=== PATIENT | female | born 1940 | race African-American/Black ===

== ENCOUNTER 2017-07-29 12:06 | Emergency (ER) | payer MEDICARE ==
--- NOTE | 2017-07-29 12:24 | ER Document Report ---
ED Medical Screen (RME) - General Chief Complaint: Back Pain Stated Complaint: BACK CHEST PAIN Time Seen by Provider: 07/29/17 12:22 Mode of Arrival: Wheelchair Information source: Patient, Relative TRAVEL OUTSIDE OF THE [place] IN LAST 30 DAYS: No - HPI Patient complains to provider of: CP; mid back pain Onset: This morning - pt. states she developed mid back pain this am which radiated to her chest -- took ASA and pain now is iimproved - Related Data Allergies/Adverse Reactions: No Known Drug Allergies Allergy (Verified 08/02/16 15:09) Past Medical History - Past Medical History Cardiac Medical History: Reports: Hx Hypercholesterolemia, Hx Hypertension Denies: Hx Coronary Artery Disease, Hx Heart Attack Pulmonary Medical History: Denies: Hx Asthma, Hx Bronchitis, Hx COPD, Hx Pneumonia Neurological Medical History: Denies: Hx Cerebrovascular Accident, Hx Seizures Endocrine Medical History: Reports: Hx Diabetes Mellitus Type 2 GI Medical History: Reports: Hx Gastritis Musculoskeltal Medical History: Denies Hx Arthritis Past Surgical History: Reports: Hx Hysterectomy, Hx Thyroid Surgery, Hx Tubal Ligation, Other - Carpal tunnel release - Immunizations Hx Diphtheria, Pertussis, Tetanus Vaccination: Yes - unknown Physical Exam - Vital signs Vitals: Temp Pulse Resp BP Pulse Ox 97.7 F 72 16 161/93 H 97 07/29/17 12:18 07/29/17 12:18 07/29/17 12:18 07/29/17 12:18 07/29/17 12:18 Course - Vital Signs Vital signs: Temp Pulse Resp BP Pulse Ox 97.7 F 72 16 161/93 H 97 07/29/17 12:18 07/29/17 12:18 07/29/17 12:18 07/29/17 12:18 07/29/17 12:18
--- NOTE | 2017-07-29 13:14 | RADIOLOGY REPORT (SQ) ---
EXAM DESCRIPTION: CHEST PA/LAT COMPLETED DATE/TIME: 07/29/2017 12:55 pm REASON FOR STUDY: CP COMPARISON: 07/17/2016. EXAM PARAMETERS: NUMBER OF VIEWS: two views TECHNIQUE: Digital Frontal and Lateral radiographic views of the chest acquired. RADIATION DOSE: NA LIMITATIONS: none FINDINGS: LUNGS AND PLEURA: No opacities, masses or pneumothorax. No pleural effusion. MEDIASTINUM AND HILAR STRUCTURES: No masses or contour abnormalities. HEART AND VASCULAR STRUCTURES: Heart normal size. No evidence for failure. BONES: No acute findings. HARDWARE: None in the chest. OTHER: No other significant finding. IMPRESSION: NO SIGNIFICANT RADIOGRAPHIC FINDING IN THE CHEST. TECHNICAL DOCUMENTATION: JOB ID: [id number] [employer]- All Rights Reserved
[2017-07-29 13:32] LABS: ABSOLUTE EOSINOPHILS # (AUTO) 0.1 10^3/uL (0.0-0.6); ABSOLUTE MONOCYTES (AUTO) 0.3 10^3/uL (0.1-1.4); ABSOLUTE NEUT (AUTO) 2.6 10^3/uL (1.7-8.2); BASOPHILS % (AUTO) 0.5 % (0-2); EOSINOPHILS % (AUTO) 2.4 % (0-6); HEMATOCRIT 35.9 % (36.0-47.0); HEMOGLOBIN 12.1 g/dL (12.0-15.5); HGB HCT DIFFERENCE 0.4; LYMPHOCYTES % (AUTO) 25.6 % (13-45); MEAN CORPUSCULAR HEMOGLOBIN 26.8 pg (27.0-33.4); MEAN CORPUSCULAR HGB CONC 33.6 g/dL (32.0-36.0); MEAN CORPUSCULAR VOLUME 80 fl (80-97); MONOCYTES % (AUTO) 7.1 % (3-13); SEGMENTED NEUTROPHILS % (AUTO) 64.4 % (42-78)
--- NOTE | 2017-07-29 13:38 | ER Document Report ---
ED General Pain - General Chief Complaint: Back Pain Stated Complaint: BACK CHEST PAIN Time Seen by Provider: 07/29/17 12:22 Mode of Arrival: Wheelchair Notes: 77 years old female with a history of abdominal aortic aneurysm which was observed for any leak year ago, developed sudden onset of low back pain late this morning while she was bending down to wash herself. Was nauseous and vomited a few times. No diarrhea or constipation. Denies any dysuria frequency urgency. Scale of pain is 5/10 TRAVEL OUTSIDE OF THE [place] IN LAST 30 DAYS: No - Related Data Allergies/Adverse Reactions: No Known Drug Allergies Allergy (Verified 08/02/16 15:09) Past Medical History - General Information source: Patient, Relative - Social History Smoking Status: Former Smoker Chew tobacco use (# tins/day): No Frequency of alcohol use: None Drug Abuse: None Family History: Reviewed & Not Pertinent Patient has suicidal ideation: No Patient has homicidal ideation: No - Past Medical History Cardiac Medical History: Reports: Hx Hypercholesterolemia, Hx Hypertension Denies: Hx Coronary Artery Disease, Hx Heart Attack Pulmonary Medical History: Denies: Hx Asthma, Hx Bronchitis, Hx COPD, Hx Pneumonia Neurological Medical History: Denies: Hx Cerebrovascular Accident, Hx Seizures Endocrine Medical History: Reports: Hx Diabetes Mellitus Type 2 Renal/ Medical History: Denies: Hx Peritoneal Dialysis GI Medical History: Reports: Hx Gastritis Musculoskeltal Medical History: Denies Hx Arthritis Past Surgical History: Reports: Hx Hysterectomy, Hx Thyroid Surgery, Hx Tubal Ligation, Other - Carpal tunnel release - Immunizations Hx Diphtheria, Pertussis, Tetanus Vaccination: Yes - unknown Hx Pneumococcal Vaccination: 08/21/08 Review of Systems - Review of Systems Notes: REVIEW OF SYSTEMS: CONSTITUTIONAL : Denies fever, chills, or sweats. Denies recent illness. EENT: Denies eye, ear, throat, or mouth pain or symptoms. Denies nasal or sinus congestion or discharge. Denies throat, tongue, or mouth swelling or difficulty swallowing. CARDIOVASCULAR: Denies chest pain. Denies palpitations or racing or irregular heart beat. Denies ankle edema. RESPIRATORY: Denies cough, cold, or chest congestion. Denies shortness of breath, difficulty breathing, or wheezing. GASTROINTESTINAL: Denies abdominal pain or distention. Denies nausea, vomiting , or diarrhea. Denies blood in vomitus, stools, or per rectum. Denies black, tarry stools. Denies constipation. GENITOURINARY: Denies difficulty urinating, painful urination, burning, frequency, blood in urine, or discharge. FEMALE GENITOURINARY: Denies vaginal bleeding, heavy or abnormal periods, irregular periods. Denies vaginal discharge or odor. MUSCULOSKELETAL: Denies back or neck pain or stiffness. Denies joint pain or swelling. SKIN: Denies rash, lesions or sores. HEMATOLOGIC : Denies easy bruising or bleeding. LYMPHATIC: Denies swollen, enlarged glands. NEUROLOGICAL: Denies confusion or altered mental status. Denies passing out or loss of consciousness. Denies dizziness or lightheadedness. Denies headache. Denies weakness or paralysis or loss of use of either side. Denies problems with gait or speech. Denies sensory loss, numbness, or tingling. Denies seizures. PSYCHIATRIC: Denies anxiety or stress. Denies depression, suicidal ideation, or homicidal ideation. ALL OTHER SYSTEMS REVIEWED AND NEGATIVE. PHYSICAL EXAMINATION: GENERAL: Well-appearing, well-nourished and in no acute distress. Appears comfortable not seems to be in any acute distress HEAD: Atraumatic, normocephalic. EYES: Pupils equal round and reactive to light, extraocular movements intact, conjunctiva are normal. ENT: Nares patent, oropharynx clear without exudates. Moist mucous membranes. NECK: Normal range of motion, supple without lymphadenopathy LUNGS: Breath sounds clear to auscultation bilaterally and equal. No wheezes rales or rhonchi. HEART: Regular rate and rhythm without murmurs ABDOMEN: Soft, she is tender on the midline of the abdomen close to the umbilicus. No rebound tenderness or guarding, nondistended abdomen. No guarding, no rebound. No masses appreciated. Female : deferred Musculoskeletal: Normal range of motion, no pitting or edema. No cyanosis. NEUROLOGICAL: Cranial nerves grossly intact. Normal speech, normal gait. Normal sensory, motor exams PSYCH: Normal mood, normal affect. SKIN: Warm, Dry, normal turgor, no rashes or lesions noted. Dictation was performed using modu recognition software Physical Exam - Vital signs Vitals: Temp Pulse Resp BP Pulse Ox 97.7 F 72 16 161/93 H 97 07/29/17 12:18 07/29/17 12:18 07/29/17 12:18 07/29/17 12:18 07/29/17 12:18 Course - Re-evaluation Re-evalutation: 07/29/17 17:25 CT report was discussed with patient, CT report reviewed Chest x-ray report reviewed - Vital Signs Vital signs: Temp Pulse Resp BP Pulse Ox 97.7 F 72 16 161/93 H 97 07/29/17 12:18 07/29/17 12:18 07/29/17 12:18 07/29/17 12:18 07/29/17 12:18 - Laboratory Result Diagrams: 07/29/17 13:10 07/29/17 13:10 Laboratory results interpreted by me: 07/29/17 07/29/17 13:10 13:10 Hct 35.9 L MCH 26.8 L RDW 15.0 H Glucose 129 H Creatine Kinase 188 H - Diagnostic Test Radiology results interpreted by me: 07/29/17 17:23 07/29/17 17:24 CT report from radiology reviewed Chest x-ray report from radiologist reviewed Discharge - Discharge Clinical Impression: Lower back pain Qualifiers: Chronicity: chronic Back pain laterality: midline Sciatica presence: without sciatica Qualified Code(s): M54.5 - Low back pain; G89.29 - Other chronic pain; G89.29 - Other chronic pain Abdominal aortic aneurysm Qualifiers: Presence of rupture: without rupture Qualified Code(s): I71.4 - Abdominal aortic aneurysm, without rupture Condition: Good Prescriptions: Hydrocodone/Acetaminophen [[place] 5-325 mg Tablet] 1 tab PO BID #10 tablet
[2017-07-29 13:47] LABS: ALANINE AMINOTRANSFERASE 37 U/L (9-52); ALBUMIN 4.1 g/dL (3.5-5.0); ALKALINE PHOSPHATASE 83 U/L (38-126); ANION GAP 10 (5-19); ASPARTATE AMINO TRANSFERASE 23 U/L (14-36); BILIRUBIN,DIRECT 0.4 mg/dL (0.0-0.4); BILIRUBIN,TOTAL 0.5 mg/dL (0.2-1.3); BLOOD UREA NITROGEN 15 mg/dL (7-20); CALCIUM 9.7 mg/dL (8.4-10.2); CARBON DIOXIDE 30 mmol/L (22-30); CHLORIDE 99 mmol/L (98-107); CREATINE KINASE 188 U/L (30-135); CREATININE RESULT 0.75 mg/dL (0.52-1.25); GLUCOSE 129 mg/dL (75-110); POTASSIUM 4.6 mmol/L (3.6-5.0); SODIUM 139.2 mmol/L (137-145); TOTAL PROTEIN 7.4 g/dL (6.3-8.2)
[2017-07-29 13:57] LABS: CREATINE KINASE MB 1.32 ng/mL (<4.55); TROPONIN I < 0.012 ng/mL
--- NOTE | 2017-07-29 17:14 | RADIOLOGY REPORT (SQ) ---
EXAM DESCRIPTION: CT ABD/PELVIS WITH IV ONLY COMPLETED DATE/TIME: 07/29/2017 4:49 pm REASON FOR STUDY: Abdominal pain COMPARISON: 08/02/2016 TECHNIQUE: CT scan of the abdomen and pelvis performed using helical scanning technique with dynamic intravenous contrast injection. No oral contrast. Images reviewed with lung, soft tissue, and bone windows. Reconstructed coronal and sagittal MPR images reviewed. Delayed images for evaluation of the urinary system also acquired. All images stored on PACS. All CT scanners at this facility use dose modulation, iterative reconstruction, and/or weight based d osing when appropriate to reduce radiation dose to as low as reasonably achievable (ALARA). [facility]: Dose Right [facility]: CareDose [facility]: Dose Right [facility]: Teradose 4D [facility]: Confide CONTRAST TYPE AND DOSE: contrast/concentration: Isovue 370.00 mg/ml; Total Contrast Delivered: 77.0 ml; Total Saline Delivered: 67.0 ml RENAL FUNCTION: GFR > 60. RADIATION DOSE: . LIMITATIONS: None. FINDINGS: LOWER CHEST: Minimal dependent subsegmental atelectasis and/ or scarring. The bases are s table in size and contour. There is been interval decrease in amount of intramural hematoma involvin g the visualized descending thoracic aorta. LIVER: Normal size. No masses. No dilated ducts. SPLEEN: Normal size. No focal lesions. PANCREAS: No masses. No significant calcifications. No adjacent inflammation or peripancreatic fluid collections. Pancreatic duct not dilated. GALLBLADDER: No identified stones by CT criteria. No inflammatory changes to suggest cholecystitis. ADRENAL GLANDS: No significant masses or asymmetry. RIGHT KIDNEY AND URETER: No solid masses. No significant calcifications. No hydronephrosis or hyd roureter. LEFT KIDNEY AND URETER: No solid masses. No significant calcifications. No hydronephrosis or hydr oureter. AORTA AND VESSELS: Stable size and contour of the abdominal aorta a with slight decrease in amount of intramural hematoma surrounding the proximal abdominal aorta. No acute aortic injury identified. RETROPERITONEUM: No retroperitoneal adenopathy, hemorrhage or masses. BOWEL AND PERITONEAL CAVITY: Extensive colonic diverticulosis. No masses or inflammatory changes. No free fluid or peritoneal masses. APPENDIX: Normal. PELVIS: No mass. No free fluid. Stable degree of mild bladder prolapse which is otherwise unremarka ble. ABDOMINAL WALL: No masses. No hernias. BONES: Stable degenerative change without fracture or suspicious osseous lesion. OTHER: No other significant finding. IMPRESSION: NO ACUTE INFLAMMATORY CHANGE INVOLVING THE ABDOMEN OR PELVIS. SLIGHT DECREASE IN AMOUNT OF INTRAMURAL HEMATOMA INVOLVING THE VISUALIZED DESCENDING THORACIC AORTA A ND PROXIMAL ABDOMINAL AORTIC ANEURYSM. NO ACUTE VASCULAR INJURY IDENTIFIED. REMAINING FINDINGS ARE STABLE FROM PRIOR CT ABDOMEN FROM 08/02/2016. TECHNICAL DOCUMENTATION: JOB ID: [id number] Quality ID # [id number]: Final reports with documentation of one or more dose reduction techniques (e.g., Au tomated exposure control, adjustment of the mA and/or kV according to patient size, use of iterative reconstruction technique) 2010 [employer]- All Rights Reserved
[2017-07-29] MEDS ORDERED: HYDROCODONE/ACETAMINOPHEN 5-325 MG TABLET PO ONE (17:29)
[2017-07-29 17:46] VITALS: BP 154/86
--- NOTE | 2017-07-29 23:13 | EKG REPORT ---
SEVERITY:- ABNORMAL ECG - SINUS RHYTHM LEFT ANTERIOR FASCICULAR BLOCK LEFT VENTRICULAR HYPERTROPHY BORDERLINE T ABNORMALITIES, INFERIOR LEADS : Confirmed by: Mark Trotter 29-Jul-2017 23:12:21
== END 2017-07-29 17:44 | disposition home or self-care (01) ==
LOC: ER 12:06
DX: I71.4 Abdominal aortic aneurysm, without rupture (principal); M54.5 Low back pain; G89.29 Other chronic pain; M54.9 Dorsalgia, unspecified; R07.9 Chest pain, unspecified; R11.2 Nausea with vomiting, unspecified; Z87.891 Personal history of nicotine dependence
CPT/HCPCS: 93005; 99284; 36415; 82553; 82550; 85025; 80053; 84484; 71020; 74177; 93010; A9270

== ENCOUNTER 2018-02-20 12:19 | Emergency (ER) | payer MEDICARE ==
--- NOTE | 2018-02-20 13:29 | ER Document Report ---
ED Medical Screen (RME) - General Chief Complaint: Flank Pain Stated Complaint: FLANK/LEG PAIN Time Seen by Provider: 02/20/18 13:17 Mode of Arrival: Ambulatory Information source: Patient Notes: 77-year-old female presents with complaints of right-sided rib pain abdominal pain after a lawnmower tipped over and fell on her yesterday. I have greeted and performed a rapid initial assessment of this patient. A comprehensive ED assessment and evaluation of the patient, analysis of test results and completion of the medical decision making process will be conducted by additional ED providers. PHYSICAL EXAMINATION: GENERAL: Well-appearing, well-nourished and in mild acute distress. HEAD: Atraumatic, normocephalic. EYES: Pupils equal round extraocular movements intact, conjunctiva are normal. ENT: Nares patent NECK: Normal range of motion LUNGS: No respiratory distress Musculoskeletal: Normal range of motion NEUROLOGICAL: Normal speech, normal gait. PSYCH: Normal mood, normal affect. SKIN: Warm, Dry, normal turgor, no rashes or lesions noted. TRAVEL OUTSIDE OF THE [place] IN LAST 30 DAYS: No - Related Data Allergies/Adverse Reactions: No Known Drug Allergies Allergy (Verified 02/20/18 12:21) Past Medical History - Social History Frequency of alcohol use: None Drug Abuse: None - Past Medical History Cardiac Medical History: Reports: Hx Hypercholesterolemia, Hx Hypertension Denies: Hx Coronary Artery Disease, Hx Heart Attack Pulmonary Medical History: Denies: Hx Asthma, Hx Bronchitis, Hx COPD, Hx Pneumonia Neurological Medical History: Denies: Hx Cerebrovascular Accident, Hx Seizures Endocrine Medical History: Reports: Hx Diabetes Mellitus Type 2 Renal/ Medical History: Denies: Hx Peritoneal Dialysis GI Medical History: Reports: Hx Gastritis Musculoskeltal Medical History: Denies Hx Arthritis Past Surgical History: Reports: Hx Abdominal Surgery - abd aorta ruture, Hx Hysterectomy, Hx Thyroid Surgery, Hx Tubal Ligation, Other - Carpal tunnel release - Immunizations Hx Diphtheria, Pertussis, Tetanus Vaccination: Yes - unknown Physical Exam - Vital signs Vitals: Temp Pulse Resp BP Pulse Ox 99.0 F 80 16 107/68 96 02/20/18 12:34 02/20/18 12:34 02/20/18 12:34 02/20/18 12:34 02/20/18 12:34 Course - Vital Signs Vital signs: Temp Pulse Resp BP Pulse Ox 99.0 F 80 16 107/68 96 02/20/18 12:34 02/20/18 12:34 02/20/18 12:34 02/20/18 12:34 02/20/18 12:34 Doctor's Discharge - Discharge Referrals: GARRET THOMAS MD [Primary Care Provider] - Follow up as needed
[2018-02-20] MEDS ORDERED: ACETAMINOPHEN WITH CODEINE #3 TABLET PO ONE (13:35)
[2018-02-20 14:36] LABS: ABSOLUTE EOSINOPHILS # (AUTO) 0.1 10^3/uL (0.0-0.6); ABSOLUTE LYMPHOCYTES (AUTO) 1.6 10^3/uL (0.5-4.7); ABSOLUTE MONOCYTES (AUTO) 0.5 10^3/uL (0.1-1.4); ABSOLUTE NEUT (AUTO) 2.5 10^3/uL (1.7-8.2); BASOPHILS % (AUTO) 0.7 % (0-2); EOSINOPHILS % (AUTO) 2.1 % (0-6); HEMATOCRIT 36.6 % (36.0-47.0); HEMOGLOBIN 12.3 g/dL (12.0-15.5); LYMPHOCYTES % (AUTO) 33.2 % (13-45); MEAN CORPUSCULAR HEMOGLOBIN 26.7 pg (27.0-33.4); MEAN CORPUSCULAR HGB CONC 33.5 g/dL (32.0-36.0); MEAN CORPUSCULAR VOLUME 80 fl (80-97); MONOCYTES % (AUTO) 10.3 % (3-13); PLATELET COUNT 196 10^3/uL (150-450); RED BLOOD COUNT 4.59 10^6/uL (3.72-5.28); RED CELL DISTRIBUTION WIDTH 16.2 % (11.5-14.0); SEGMENTED NEUTROPHILS % (AUTO) 53.7 % (42-78); TOTAL CELLS COUNTED % (AUTO) 100 %; WHITE BLOOD COUNT 4.7 10^3/uL (4.0-10.5)
[2018-02-20 15:08] LABS: ALANINE AMINOTRANSFERASE 25 U/L (9-52); ALBUMIN 4.2 g/dL (3.5-5.0); ALKALINE PHOSPHATASE 87 U/L (38-126); ANION GAP 9 (5-19); ASPARTATE AMINO TRANSFERASE 38 U/L (14-36); BILIRUBIN,DIRECT 0.3 mg/dL (0.0-0.4); BILIRUBIN,TOTAL 0.5 mg/dL (0.2-1.3); BLOOD UREA NITROGEN 20 mg/dL (7-20); CARBON DIOXIDE 30 mmol/L (22-30); CHLORIDE 101 mmol/L (98-107); GLUCOSE 93 mg/dL (75-110); POTASSIUM 4.3 mmol/L (3.6-5.0); SODIUM 139.6 mmol/L (137-145); TOTAL PROTEIN 7.8 g/dL (6.3-8.2)
--- NOTE | 2018-02-20 15:57 | ER Document Report ---
ED General - General Mode of Arrival: Ambulatory TRAVEL OUTSIDE OF THE [place] IN LAST 30 DAYS: No <SOCORRO BARROS - Last Filed: 02/20/18 17:49> <JUAN COLLINS - Last Filed: 02/20/18 18:51> - General Chief Complaint: Flank Pain Stated Complaint: FLANK/LEG PAIN Time Seen by Provider: 02/20/18 13:17 Notes: Patient is a 77-year-old female presenting to the emergency department complaining of right-sided rib pain and abdominal pain onset yesterday. Patient states that a cork insulator helper fell on top of her around 1900 yesterday evening. She also complains of some weakness in her right leg due to pain and right hip pain. She mentions taking a aspirin yesterday. Patient denies any head trauma, vision changes or taking blood thinners. (SOCORRO BARROS) - Related Data Allergies/Adverse Reactions: No Known Drug Allergies Allergy (Verified 02/20/18 12:21) Past Medical History - General Information source: Patient - Social History Smoking Status: Never Smoker Frequency of alcohol use: None Drug Abuse: None Family History: Reviewed & Not Pertinent Patient has suicidal ideation: No Patient has homicidal ideation: No - Past Medical History Cardiac Medical History: Reports: Hx Hypercholesterolemia, Hx Hypertension Endocrine Medical History: Reports: Hx Diabetes Mellitus Type 2 GI Medical History: Reports: Hx Gastritis Past Surgical History: Reports: Hx Abdominal Surgery - abd aorta ruture, Hx Hysterectomy, Hx Thyroid Surgery, Hx Tubal Ligation, Other - Carpal tunnel release - Immunizations Hx Diphtheria, Pertussis, Tetanus Vaccination: Yes - unknown Hx Pneumococcal Vaccination: 08/21/08 <SOCORRO BARROS - Last Filed: 02/20/18 17:49> Review of Systems - Review of Systems Constitutional: No symptoms reported EENT: No symptoms reported Cardiovascular: No symptoms reported Respiratory: No symptoms reported Gastrointestinal: See HPI, Abdominal pain Genitourinary: No symptoms reported Female Genitourinary: No symptoms reported Musculoskeletal: See HPI <SOCORRO BARROS - Last Filed: 02/20/18 17:49> Physical Exam <SOCORRO BARROS - Last Filed: 02/20/18 17:49> <JUAN COLLINS - Last Filed: 02/20/18 18:51> - Vital signs Vitals: Temp Pulse Resp BP Pulse Ox 99.0 F 80 16 107/68 96 02/20/18 12:34 02/20/18 12:34 02/20/18 12:34 02/20/18 12:34 02/20/18 12:34 - Notes Notes: GENERAL: Alert, interacts well. No acute distress. HEAD: Normocephalic, atraumatic. EYES: Pupils equal, round, and reactive to light. Extraocular movements intact. ENT: Oral mucosa moist, tongue midline. NECK: Full range of motion. No posterior cervical muscle tenderness to palpation. Supple. Trachea midline. LUNGS: Clear to auscultation bilaterally, no wheezes, rales, or rhonchi. Right floating rib tenderness to palpation, no crepitance. No respiratory distress. HEART: Regular rate and rhythm. No murmurs, gallops, or rubs. ABDOMEN: Soft, right upper quadrant tenderness to palpation. No bruising. Non- distended. Bowel sounds present in all 4 quadrants. EXTREMITIES: Moves all 4 extremities spontaneously. Right quadriceps muscles tenderness to palpation. No pain with active or passive ROM of the BLE or BUE. No edema, radial and dorsalis pedis pulses 2/4 bilaterally. No cyanosis. NEUROLOGICAL: Alert and oriented x3. Normal speech. PSYCH: Normal affect, normal mood. SKIN: Warm, dry, normal turgor. No rashes or lesions noted. BACK: No cervical, thoracic or lumbar tenderness to palpation. 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 Blandon inviting approximately [address] Blandon is a cardiothoracic vascular surgeon. Images were pushed dividing and awaiting consult from his group for management. 02/20/18 18:[address] Mackay in [place]. He reviewed CT performed today compared to CT performed several months ago no change in patient's dissection or a. Safe for discharge their offices will call her on for follow-up. (JUAN COLLINS) - Vital Signs Vital signs: Temp Pulse Resp BP Pulse Ox 99.0 F 80 16 107/68 96 02/20/18 12:34 02/20/18 12:34 02/20/18 12:34 02/20/18 12:34 02/20/18 12:34 - Laboratory Laboratory results interpreted by me: 02/20/18 02/20/18 14:11 14:11 MCH 26.7 L RDW 16.2 H Est GFR (Non-Af Amer) 55 L AST 38 H Critical Care Note - Critical Care Note Total time excluding time spent on procedures (mins): 45 <SOCORRO BARROS - Last Filed: 02/20/18 17:49> Discharge <SOCORRO BARROS - Last Filed: 02/20/18 17:49> <JUAN COLLINS - Last Filed: 02/20/18 18:51> - Discharge Clinical Impression: Contusion of rib on right side Qualifiers: Encounter type: initial encounter Qualified Code(s): S20.211A - Contusion of right front wall of thorax, initial encounter Condition: Good Instructions: Rib Contusion ([facility]) Additional Instructions: You will be called on this week for a follow-up appointment with Dr. Blandon. Spoke to Dr. Mackay, your aneurysm and dissection are stable from previous imaging performed earlier this year. Take Tylenol as needed directed on bottle for your rib pain. Referrals: GARRET THOMAS MD [Primary Care Provider] - Follow up as needed Scribe Documentation - Scribe Written by Scribe:: Gayla Treviño, 02/20/2018 15:57 acting as scribe for :: Ld <SOCORRO BARROS - Last Filed: 02/20/18 17:49>
--- NOTE | 2018-02-20 16:36 | RADIOLOGY REPORT (SQ) ---
EXAM DESCRIPTION: CT ABD/PELVIS WITH IV ONLY COMPLETED DATE/TIME: 02/20/2018 4:09 pm REASON FOR STUDY: trauma COMPARISON: 07/29/2017 TECHNIQUE: CT scan of the abdomen and pelvis performed using helical scanning technique with dynamic intravenous contrast injection. No oral contrast. Images reviewed with lung, soft tissue, and bone windows. Reconstructed coronal and sagittal MPR images reviewed. Delayed images for evaluation of the urinary system also acquired. All images stored on PACS. All CT scanners at this facility use dose modulation, iterative reconstruction, and/or weight based d osing when appropriate to reduce radiation dose to as low as reasonably achievable (ALARA). [facility]: Dose Right [facility]: CareDose [facility]: Dose Right [facility]: Teradose 4D [facility]: vitalclip CONTRAST TYPE AND DOSE: contrast/concentration: Isovue 370.00 mg/ml; Total Contrast Delivered: 75.0 ml; Total Saline Delivered: 67.0 ml RENAL FUNCTION: BUN 20 creatinine 1 RADIATION DOSE: CT Rad equipment meets quality standard of care and radiation dose reduction techniq ues were employed. CTDIvol: 5.9 - 7.7 mGy. DLP: 889 mGy-cm.. LIMITATIONS: None. FINDINGS: LOWER CHEST: See separate report of the CT of the chest. LIVER: Normal size. No masses. No dilated ducts. SPLEEN: Normal size. No focal lesions. PANCREAS: No masses. No significant calcifications. No adjacent inflammation or peripancreatic fluid collections. Pancreatic duct not dilated. GALLBLADDER: No identified stones by CT criteria. No inflammatory changes to suggest cholecystitis. ADRENAL GLANDS: No significant masses or asymmetry. RIGHT KIDNEY AND URETER: No solid masses. No significant calcifications. No hydronephrosis or hyd roureter. LEFT KIDNEY AND URETER: No solid masses. No significant calcifications. No hydronephrosis or hydr oureter. AORTA AND VESSELS: No aneurysm. No dissection. Atherosclerosis. RETROPERITONEUM: No retroperitoneal adenopathy, hemorrhage or masses. BOWEL AND PERITONEAL CAVITY: Extensive colonic diverticulosis with no acute inflammation. No bowel m asses. APPENDIX: Not identified. PELVIS: Uterus is absent. Urinary bladder is normal. ABDOMINAL WALL: No masses. No hernias. BONES: No significant or acute findings. OTHER: No other significant finding. IMPRESSION: Diverticulosis coli with no acute diverticulitis. TECHNICAL DOCUMENTATION: JOB ID: [id number] Quality ID # [id number]: Final reports with documentation of one or more dose reduction techniques (e.g., Au tomated exposure control, adjustment of the mA and/or kV according to patient size, use of iterative reconstruction technique) 2010 [id number]- All Rights Reserved Reading location - IP/workstation name: [email or web address]
--- NOTE | 2018-02-20 17:35 | RADIOLOGY REPORT (SQ) ---
EXAM DESCRIPTION: CT CHEST WITH COMPLETED DATE/TIME: 02/20/2018 4:09 pm REASON FOR STUDY: trauma COMPARISON: 08/02/2016 TECHNIQUE: CT scan of the chest performed using helical scanning technique with dynamic intravenous contrast injection. Images reviewed with lung, soft tissue and bone windows. Reconstructed coronal and sagittal MPR images reviewed. All images stored on PACS. All CT scanners at this facility use dose modulation, iterative reconstruction, and/or weight based d osing when appropriate to reduce radiation dose to as low as reasonably achievable (ALARA). [facility]: Dose Right [facility]: CareDose [facility]: Dose Right [facility]: Teradose 4D [facility]: SoundCure CONTRAST TYPE AND DOSE: 75 mL Isovue 370- low osmolar. RENAL FUNCTION: BUN 20 creatinine 1 RADIATION DOSE: . LIMITATIONS: None. FINDINGS: LUNGS AND PLEURA: No opacities, nodules, masses. No pneumothorax. No effusions. HILAR AND MEDIASTINAL STRUCTURES: No identified masses or abnormal nodes. HEART AND VASCULAR STRUCTURES: Mild aneurysmal dilatation of the ascending aorta measures 4 cm. Ther e is limited dissection in the aortic arch. This is a distal to the origin the left subclavian arter y. This does not propagate into the subclavian this does not extend down the descending aorta. HARDWARE: None in the chest. UPPER ABDOMEN: See separate report of the CT of the abdomen. THYROID AND OTHER SOFT TISSUES: Right lobe of the thyroid is larger than left. BONES: No significant finding. OTHER: No other significant finding. IMPRESSION: 1. Limited dissection of the aortic arch as described. 2. Mild aneurysmal dilatation of the ascending aorta at 4 cm. 3. The right lobe of the thyroid is larger than the left. COMMENT: Pertinent findings on the imaging study reported as a CRITICAL RESULT to VAISHNAVI MENDEZ DO at17:29 on 02/20/2018. TECHNICAL DOCUMENTATION: JOB ID: [id number] Quality ID # [id number]: Final reports with documentation of one or more dose reduction techniques (e.g., Au tomated exposure control, adjustment of the mA and/or kV according to patient size, use of iterative reconstruction technique) 2010 [employer]- All Rights Reserved Reading location - IP/workstation name: [email or web address]
[2018-02-20 18:58] VITALS: BP 144/85
== END 2018-02-20 19:04 | disposition home or self-care (01) ==
LOC: ER 12:19
DX: S20.211A Contusion of right front wall of thorax, initial encounter (principal); R07.89 Other chest pain; M25.551 Pain in right hip; W20.8XXA Other cause of strike by thrown, projected or falling object, initial encounter; E78.00 Pure hypercholesterolemia, unspecified; I10 Essential (primary) hypertension; E11.9 Type 2 diabetes mellitus without complications; Z90.710 Acquired absence of both cervix and uterus
CPT/HCPCS: 99285; 36415; 85025; 80053; 71260; 74177; A9270

== ENCOUNTER 2019-10-10 09:30 | Day surgery (SDC) | payer MEDICARE ==
[~2019-10-10 09:30] MED LIST: BUPIVACAINE HCL 0.75% INJ/PF (7.5 MG/1 ML) 10 ML SDV OD PRN; KETOROLAC TROMETHAMINE 0.45% 4 DROP/0.4 ML DROPERETTE OD PRN; LIDOCAINE 1% INJ-PF (10 MG/ML) 30 ML SDV ONE; LIDOCAINE 4% INJ/PF (40 MG/ML) 5 ML AMPUL OD PRN
[2019-10-10] MEDS: CYCLOPENTOLATE 0.2%/PHENYLEPHRINE 1% OPH SOLN 2 ML OD PRN ×3 (11:10→11:30)
[2019-10-10] MEDS: BESIFLOXACIN HCL 0.6% OPH SUSP 5 ML BOTTLE OD PRN ×4 (11:10→12:23)
[2019-10-10] MEDS: TROPICAMIDE 1% OPH SOLN 15 ML OD PRN ×3 (11:10→11:30)
[2019-10-10] MEDS: TETRACAINE HCL 0.5% OPH SOLN 4 ML OD PRN ×3 (11:11→11:52)
[2019-10-10] MEDS ORDERED: MIDAZOLAM 2 MG/2 ML INJ ONE (11:32)
[2019-10-10] MEDS: LIDOCAINE 1%/PHENYLEPHRINE 1.5% 1 ML VIAL ONE ×2 (12:04→12:05)
[2019-10-10] MEDS: CHONDR SU A NA/HYALUR INTRAOC KIT (SURGICARE) ONE ×2 (12:04→12:05)
[2019-10-10] MEDS: EPINEPHRINE INJ/PF 1 MG/1 ML AMPULE ONE ×2 (12:04→12:05)
[2019-10-10] MEDS: DORZOLAMIDE HCL 2%/TIMOLOL MALEAT 0.5% OPH SOLN 10 ML OD PRN ×2 (12:23)
--- NOTE | 2019-10-10 17:27 | Operative Report ---
Operative Report-[facility] Operative Report: DATE OF SURGERY: 10/10/2019 PREOPERATIVE DIAGNOSIS: 1. CATARACT, RIGHT EYE 2. PUPIL MIOSIS, RIGHT EYE POSTOPERATIVE DIAGNOSIS: 1. CATARACT, RIGHT EYE 2. PUPIL MIOSIS, RIGHT EYE PROCEDURE PERFORMED: COMPLEX CATARACT EXTRACTION WITH INTRAOCULAR LENS, RIGHT EYE Intraocular Lens Model: ZCBOO 27.0 Total Phaco Time: 8.09 CDE SURGEON: COLBY PÉREZ MD ANESTHESIA: Topical with MAC plus intraocular phenylephrine and lidocaine INDICATIONS FOR SURGERY: Difficulty reading small print Indications for complex: Poor pupil dilation requiring the use of a malyugin ring PROCEDURE: The patient was brought to the operating room placed on operating table. Topical anesthesia was administered. This consisted of instrument wipe pledgets soaked in a solution of 4% Xylocaine mixed with 0.75% Marcaine in a 1:2 ratio. A 2 x 1 cm pledget was placed in the superior fornix. A 1 x 1 cm pledget was placed in the inferior fornix. The eye was patched for 5 minutes. The patch and pledgets were removed. The eye was sterilely prepped and draped in the usual manner. A lid speculum was placed in the eye. A 4-0 black silk suture was placed around the superior and inferior rectus muscle to use as traction. A conjunctival peritomy was made at the 10 o'clock position. Hemostasis was obtained with bipolar cautery. A posterior limbal groove was created using a crescent knife and dissected anteriorly towards the cornea. Sharp point blade was used to create a paracentesis site at the 2 o'clock position. A 2.4 mm k eratome was used into the anterior chamber through the groove. Then 0.5 mL of 1% non-preserved lidocaine was injected into the anterior chamber. Viscoelastic was injected into the anterior chamber. Pupil dilation was approximately 4.5 mm. A Malyugin Ring was placed stabilizing the iris. An anterior capsulotomy was performed using Utrata forceps in a capsulorrhexis fashion. Hydrodissection and hydrodelineation was performed. Phacoemulsification was performed in the divide and conquer technique. Following this, that I/A unit was used to remove residual cortex. Viscoelastic was injected into the capsular bag. Intraocular lens were placed in the capsular bag. The Malyugin ring haptics were removed and the ring was removed from the eye. The I/A unit was used to remove residual viscoelastic. The wound was seen to be watertight under high and low pressure and no sutures were placed. The 4-0 black silk sutures and lid speculum were removed. The eye was shielded after Besivance and Cosopt drops were placed. The patient tolerated the procedure well and was sent to recovery room in good condition.
== END 2019-10-10 13:19 | disposition home or self-care (01) ==
LOC: SC 09:30
PROVIDERS: ATTEND Ophthalmology
DX: H25.813 Combined forms of age-related cataract, bilateral (principal); H57.03 Miosis; E11.9 Type 2 diabetes mellitus without complications; H04.123 Dry eye syndrome of bilateral lacrimal glands; H43.813 Vitreous degeneration, bilateral; H52.4 Presbyopia; I10 Essential (primary) hypertension; E78.00 Pure hypercholesterolemia, unspecified; E03.9 Hypothyroidism, unspecified; Z87.891 Personal history of nicotine dependence; Z79.84 Long term (current) use of oral hypoglycemic drugs; I49.9 Cardiac arrhythmia, unspecified; Z79.82 Long term (current) use of aspirin
CPT/HCPCS: 66982; 82962; 00142; V2632; J2250; J3490 ×4; A9270; J0171; J2370; 142

== ENCOUNTER 2019-12-14 13:04 | Observation (INO) | payer MEDICARE ==
--- NOTE | 2019-12-14 13:21 | ER Document Report ---
ED Medical Screen (RME) - General Chief Complaint: Rectal Bleeding Stated Complaint: BACK,SIDE PAIN Time Seen by Provider: 12/14/19 13:14 Primary Care Provider: GARRET THOMAS MD [Primary Care Provider] - Follow up as needed Mode of Arrival: Ambulatory Information source: Patient Notes: Patient presents complaining of blood in her stool for the past 3 days. Patient states she does have occasional dizziness. Patient complains of left arm left upper quadrant and pain between the shoulder blades to the upper back area. Patient does report nausea without vomiting. Patient denies any fever. Patient has a history of hypertension, diabetes as well as diverticulitis. I have greeted and performed a rapid initial assessment of this patient. A comprehensive ED assessment and evaluation of the patient, analysis of test results and completion of the medical decision making process will be conducted by additional ED providers. TRAVEL OUTSIDE OF THE [place] IN LAST 30 DAYS: No - Related Data Allergies/Adverse Reactions: No Known Drug Allergies Allergy (Verified 10/04/19 10:21) Past Medical History - Social History Frequency of alcohol use: Occasional Family history: Reviewed & Not Pertinent - Past Medical History Cardiac Medical History: Reports: Hx Hypercholesterolemia, Hx Hypertension Denies: Hx Coronary Artery Disease, Hx Heart Attack Pulmonary Medical History: Denies: Hx Asthma, Hx Bronchitis, Hx COPD, Hx Pneumonia Neurological Medical History: Denies: Hx Cerebrovascular Accident, Hx Seizures Endocrine Medical History: Reports: Hx Diabetes Mellitus Type 2 Renal/ Medical History: Denies: Hx Peritoneal Dialysis GI Medical History: Reports: Hx Gastritis, Hx Gastroesophageal Reflux Disease. Denies: Hx Hepatitis, Hx Hiatal Hernia, Hx Ulcer Musculoskeltal Medical History: Denies Hx Arthritis Infectious Medical History: Denies: Hx Hepatitis Past Surgical History: Reports: Hx Abdominal Surgery - abd aorta ruture, Hx Hysterectomy, Hx Thyroid Surgery, Hx Tubal Ligation, Other - Carpal tunnel release. Denies: Hx Mastectomy, Hx Open Heart Surgery, Hx Pacemaker - Immunizations Hx Diphtheria, Pertussis, Tetanus Vaccination: Yes - unknown Physical Exam - Vital signs Vitals: Temp Pulse Resp BP Pulse Ox 98.5 F 84 17 114/71 100 12/14/19 13:11 12/14/19 13:11 12/14/19 13:11 12/14/19 13:11 12/14/19 13:11 - General General appearance: Appears well, Alert Notes: Left upper quadrant tenderness Course - Vital Signs Vital signs: Temp Pulse Resp BP Pulse Ox 98.5 F 84 17 114/71 100 12/14/19 13:13 12/14/19 13:11 12/14/19 13:11 12/14/19 13:11 12/14/19 13:11 Doctor's Discharge - Discharge Referrals: GARRET THOMAS MD [Primary Care Provider] - Follow up as needed
[2019-12-14 13:55] LABS: ABSOLUTE EOSINOPHILS # (AUTO) 0.2 10^3/uL (0.0-0.6); ABSOLUTE LYMPHOCYTES (AUTO) 1.6 10^3/uL (0.5-4.7); ABSOLUTE MONOCYTES (AUTO) 0.3 10^3/uL (0.1-1.4); ABSOLUTE NEUT (AUTO) 2.4 10^3/uL (1.7-8.2); BASOPHILS % (AUTO) 0.6 % (0-2); EOSINOPHILS % (AUTO) 3.9 % (0-6); HEMATOCRIT 20.9 % (36.0-47.0); MEAN CORPUSCULAR HEMOGLOBIN 27.8 pg (27.0-33.4); MEAN CORPUSCULAR HGB CONC 34.3 g/dL (32.0-36.0); MEAN CORPUSCULAR VOLUME 81 fl (80-97); MONOCYTES % (AUTO) 7.6 % (3-13); PLATELET COUNT 166 10^3/uL (150-450); RED BLOOD COUNT 2.58 10^6/uL (3.72-5.28); RED CELL DISTRIBUTION WIDTH 16.1 % (11.5-14.0); SEGMENTED NEUTROPHILS % (AUTO) 52.9 % (42-78); TOTAL CELLS COUNTED % (AUTO) 100 %; WHITE BLOOD COUNT 4.5 10^3/uL (4.0-10.5)
[2019-12-14 13:57] LABS: HEMOGLOBIN 7.2 g/dL (12.0-15.5)
[2019-12-14 13:58] LABS: INTERNATIONAL RATION (INR) 0.99
[2019-12-14 13:59] LABS: PARTIAL THROMBOPLASTIN TIME 27.4 SEC (23.5-35.8)
[2019-12-14] MEDS ORDERED: NORMAL SALINE 250 ML IV PRN (14:05)
[2019-12-14 14:12] LABS: ALBUMIN 3.6 g/dL (3.5-5.0); ALKALINE PHOSPHATASE 66 U/L (38-126); ANION GAP 5 (5-19); ASPARTATE AMINO TRANSFERASE 24 U/L (14-36); BILIRUBIN,TOTAL 0.2 mg/dL (0.2-1.3); BLOOD UREA NITROGEN 22 mg/dL (7-20); CALCIUM 8.7 mg/dL (8.4-10.2); CARBON DIOXIDE 26 mmol/L (22-30); CHLORIDE 106 mmol/L (98-107); GLUCOSE 109 mg/dL (75-110); POTASSIUM 4.6 mmol/L (3.6-5.0); TOTAL PROTEIN 6.4 g/dL (6.3-8.2)
[2019-12-14] MEDS ORDERED: ACETAMINOPHEN 325 MG TABLET PO PRN (14:43)
[2019-12-14 14:46] LABS: IRON(TIBC) 39.8 ug/dL (37-170)
[2019-12-14 14:47] LABS: ABSOLUTE RETICS # 0.082 10^6/uL (0.028-0.122); RETICULOCYTE COUNT (AUTO) 3.21 % (0.66-2.85)
[2019-12-14] MEDS ORDERED: ONDANSETRON HCL INJ/PF 4 MG/2 ML SDV IV PRN (14:48)
[2019-12-14] MEDS ORDERED: MAG HYDROX/AL HYDROX/SIMETH SUSP 30 ML UDCUP PO PRN (14:48)
[2019-12-14] MEDS ORDERED: DEXTROSE 40% GEL 15 GM TUBE PO PRN ×2 (14:49)
[2019-12-14] MEDS ORDERED: GLUCAGON,HUMAN RECOMB 1 MG INJ IM PRN (14:49)
[2019-12-14] MEDS ORDERED: DEXTROSE 50%-WATER 25 GM/50 ML DISP.SYRIN IV PRN ×2 (14:49)
[2019-12-14 15:05] LABS: APPEARANCE,URINE CLEAR; BILIRUBIN,URINE NEGATIVE (NEGATIVE); COLOR,URINE YELLOW; GLUCOSE, URINE NEGATIVE (NEGATIVE); KETONES,URINE NEGATIVE (NEGATIVE); LEUKOCYTE ESTERASE,URINE NEGATIVE (NEGATIVE); NITRITE,URINE NEGATIVE (NEGATIVE); PROTEIN,URINE NEGATIVE (NEGATIVE); URINE SPECIFIC GRAVITY 1.009; UROBILINOGEN,URINE NEGATIVE mg/dL (<2.0)
--- NOTE | 2019-12-14 15:25 | PDOC H&P ---
History of Present Illness Admission Date/PCP: GARRET THOMAS Patient complains of: Dizziness, palpitations, rectal bleed History of Present Illness: JUAN CARLOS MONTANA is a 79 year old female with a history of extensive diverticulosis, type 2 diabetes mellitus, and hypertension, presented to the hospital with complaints of palpitations and rectal bleeding. Rectal bleeding started on and initially started as hematochezia with more red blood in the bowl than stool transitioned over the next few days to dark stool. Patient states that she has been having about 1 bowel movement today. Associated with dizziness this morning and palpitations. States that she feels her dizziness is due to her blood pressure medication which she takes at nighttime and sometimes causes dizziness/lightheadedness in the morning. Did note some pain in her left arm which was intermittent. Subsequently came to the ER for evaluation. In the ER patient was noted to be anemic with hemoglobin of 7.2. Patient states her last colonoscopy and upper endoscopy was in 2019. Denies having any recurrence of GI bleed for the past 1 year. Denies frequent constipation. Denies chest pain. Past Medical History Cardiac Medical History: Reports: Hyperlipidema, Hypertension Denies: Coronary Artery Disease, Myocardial Infarction Pulmonary Medical History: Denies: Asthma, Bronchitis, Chronic Obstructive Pulmonary Disease (COPD), Pneumonia Neurological Medical History: Denies: Seizures Endocrine Medical History: Reports: Diabetes Mellitus Type 2 GI Medical History: Reports: Gastroesophageal Reflux Disease Denies: Hepatitis, Hiatal Hernia Musculoskeltal Medical History: Denies: Arthritis Hematology: Reports: Anemia Denies: Sickle Cell Disease Past Surgical History Past Surgical History: Reports: Hysterectomy, Tubal Ligation, Other - Carpal tunnel release Denies: Amputation, Mastectomy, Pacemaker Social History Smoking Status: Former Smoker Frequency of Alcohol Use: None Hx Recreational Drug Use: No Drugs: None Hx Prescription Drug Abuse: No - Advance Directive Resuscitation Status: Do Not Resuscitate - DNR/DNI Family History Family History: DM, Hypertension Parental Family History Reviewed: Yes Children Family History Reviewed: NA Sibling(s) Family History Reviewed.: NA Medication/Allergy Home Medications: Aspirin [Aspirin 81 mg Chewable Tablet] 81 mg PO DAILY 03/21/19 Carvedilol [Coreg 25 mg Tablet] 25 mg PO BID 03/21/19 Lisinopril [Prinivil 40 mg Tablet] 40 mg PO DAILY 03/21/19 Metformin HCl [Glucophage 500 mg Tablet] 500 mg PO DAILY 03/21/19 Nifedipine [Procardia XL 30 mg Tablet] 30 mg PO DAILY 03/21/19 Besifloxacin HCl [Besivance 0.6% Oph Susp 5 ml] 1 drop OP TID 10/09/19 Bromfenac Sodium [Prolensa] 1.6 ml OP .ASDIR 10/09/19 Difluprednate [Durezol] 5 ml OP .ADIR 10/09/19 Allergies/Adverse Reactions: No Known Drug Allergies Allergy (Verified 10/04/19 10:21) Review of Systems Constitutional: ABSENT: fatigue, fever(s) Eyes: ABSENT: visual disturbances Nose, Mouth, and Throat: ABSENT: headache(s) Cardiovascular: ABSENT: chest pain Respiratory: ABSENT: dyspnea Gastrointestinal: PRESENT: abdominal pain. ABSENT: coffee ground emesis, nausea, vomiting Integumentary: ABSENT: diaphoresis Neurological: PRESENT: dizziness. ABSENT: convulsions Hematologic/Lymphatic: ABSENT: easy bleeding Physical Exam Vital Signs: Temp Pulse Resp BP Pulse Ox 98.5 F 84 17 114/71 100 12/14/19 13:13 12/14/19 13:11 12/14/19 13:11 12/14/19 13:11 12/14/19 13:11 Intake & Output 12/13/19 12/14/19 12/15/19 06:59 06:59 06:59 Weight 71.7 kg General appearance: PRESENT: no acute distress, cooperative Head exam: PRESENT: normocephalic Mouth exam: PRESENT: neck supple Neck exam: ABSENT: JVD Respiratory exam: PRESENT: clear to auscultation alisa, unlabored. ABSENT: tachypnea, wheezes Cardiovascular exam: PRESENT: +S1, +S2 GI/Abdominal exam: PRESENT: soft. ABSENT: distended, rebound, rigid, tenderness Extremities exam: ABSENT: calf tenderness Neurological exam: PRESENT: alert, awake, oriented to person, oriented to place, oriented to time, oriented to situation Psychiatric exam: ABSENT: agitated, anxious Focused psych exam: ABSENT: pressured speech Skin exam: ABSENT: jaundice Results Laboratory Results: 12/14/19 13:31 12/14/19 13:31 12/14/19 12/14/19 12/14/19 13:31 13:31 13:31 WBC 4.5 RBC 2.58 L Hgb 7.2 L Hct 20.9 L MCV 81 MCH 27.8 MCHC 34.3 RDW 16.1 H Plt Count 166 Seg Neutrophils % 52.9 Retic Count (auto) 3.21 H Sodium 137.3 Potassium 4.6 Chloride 106 Carbon Dioxide 26 Anion Gap 5 BUN 22 H Creatinine 1.05 Est GFR ( Amer) > 60 Glucose 109 Calcium 8.7 Total Bilirubin 0.2 AST 24 Alkaline Phosphatase 66 Total Protein 6.4 Albumin 3.6 Lipase 153.7 Assessment and Plan - Diagnosis (1) Symptomatic anemia Is this a current diagnosis for this admission?: Yes Plan: Possible that palpitation and lightheadedness today may have been secondary to patient's normocytic anemia. Hemoglobin of 7.2. Etiology of acute on chronic anemia includes GI bleed but will check iron studies. Being transfused prbc (2) Lower GI bleed Is this a current diagnosis for this admission?: Yes Plan: Last EGD with colonoscopy on 03/22/2019 showing multiple sigmoid and descending colonic diverticula, no active bleeding hemorrhoids, hiatal hernia. Suspecting that patient may have experienced a diverticular bleed which may be currently resolving as the blood is darkening. I will watch patient closely and check orthostatics 3 times a day Conservative management may suffice if H&H holds steady and bleeding resolves but surgery involved as well just in case things take a turn. Trend H&H (3) HTN (hypertension) Qualifiers: Hypertension type: unspecified Qualified Code(s): I10 - Essential (primary) hypertension Is this a current diagnosis for this admission?: Yes Plan: Patient states that she sometimes experiences some lightheadedness transiently in the morning after taking blood pressure medications at nighttime and states it is related to hypotension on her readings. Awaiting medication reconciliation by pharmacy. Monitor vital signs (4) Type 2 diabetes mellitus Is this a current diagnosis for this admission?: Yes Plan: Hold metformin. Sliding scale insulin and Accu-Cheks - Time Time Spent with patient: 35 or more minutes
--- NOTE | 2019-12-14 15:25 | ER Document Report ---
Entered by JUSTIN LOBO SCRIBE 12/14/19 1346 Acting as scribe for:ALDO NAVARRO MD ED GI Bleed / Rectal Pain - General Chief Complaint: Rectal Bleeding Stated Complaint: BACK,SIDE PAIN Time Seen by Provider: 12/14/19 13:14 Mode of Arrival: Ambulatory Information source: Patient, [facility], [facility]–1983 Records Notes: This 79-year-old female patient comes emergency room complaining of rectal bleeding. She states she noted the bleeding on , 12/12/2019. She states yesterday the stools became black and tarry. She denies dizziness, nausea or vomiting. She denies any abdominal pain. She was seen here in March 2019 with a lower GI bleed requiring transfusion. At that time colonoscopy showed oozing from a diverticulum, and some internal hemorrhoids but no gross bleeding at that time. TRAVEL OUTSIDE OF THE [place] IN LAST 30 DAYS: No - Related Data Allergies/Adverse Reactions: No Known Drug Allergies Allergy (Verified 10/04/19 10:21) Past Medical History - General Information source: Patient - Social History Smoking Status: Never Smoker Frequency of alcohol use: Occasional Family History: Reviewed & Not Pertinent Patient has suicidal ideation: No Patient has homicidal ideation: No - Past Medical History Cardiac Medical History: Reports: Hx Hypercholesterolemia, Hx Hypertension Denies: Hx Coronary Artery Disease, Hx Heart Attack Pulmonary Medical History: Denies: Hx Asthma, Hx Bronchitis, Hx COPD, Hx Pneumonia Neurological Medical History: Denies: Hx Cerebrovascular Accident, Hx Seizures Endocrine Medical History: Reports: Hx Diabetes Mellitus Type 2 Renal/ Medical History: Denies: Hx Peritoneal Dialysis GI Medical History: Reports: Hx Gastritis, Hx Gastroesophageal Reflux Disease. Denies: Hx Hepatitis, Hx Hiatal Hernia, Hx Ulcer Musculoskeletal Medical History: Denies Hx Arthritis Infectious Medical History: Denies: Hx Hepatitis Past Surgical History: Reports: Hx Abdominal Surgery - abd aorta ruture, Hx Hysterectomy, Hx Thyroid Surgery, Hx Tubal Ligation, Other - Carpal tunnel release. Denies: Hx Mastectomy, Hx Open Heart Surgery, Hx Pacemaker - Immunizations Hx Diphtheria, Pertussis, Tetanus Vaccination: Yes - unknown Hx Pneumococcal Vaccination: 08/21/08 Review of Systems - Review of Systems Cardiovascular: See HPI, Dizziness, Lightheaded, Other - Takes hypertension meds at night and reports she is lightheaded and dizzy every morning when she wakes up Gastrointestinal: See HPI, Other - blood in stool. reports her stomach gurgles a lot Physical Exam - Vital signs Vitals: Temp Pulse Resp BP Pulse Ox 98.5 F 84 17 114/71 100 12/14/19 13:11 12/14/19 13:11 12/14/19 13:11 12/14/19 13:11 12/14/19 13:11 - General General appearance: Appears well, Alert In distress: None - HEENT Head: Normocephalic, Atraumatic Eyes: Normal Conjunctiva: Normal - Respiratory Respiratory status: No respiratory distress Chest status: Nontender Breath sounds: Normal - Cardiovascular Rhythm: Regular Heart sounds: Normal auscultation Murmur: No - Abdominal Inspection: Obese Distension: No distension Bowel sounds: Normal Tenderness: Nontender - Extremities General upper extremity: Normal inspection, Nontender, Normal ROM General lower extremity: Normal inspection, Nontender, Normal ROM - Neurological Neuro grossly intact: Yes Cognition: Normal Orientation: AAOx4 - Psychological Associated symptoms: Normal affect, Normal mood - Skin Skin Temperature: Warm Skin Moisture: Dry Skin Color: Normal Course - Vital Signs Vital signs: Temp Pulse Resp BP Pulse Ox 98.5 F 84 14 103/68 100 12/14/19 13:13 12/14/19 13:11 12/14/19 15:01 12/14/19 15:01 12/14/19 15:01 - Laboratory Result Diagrams: 12/14/19 13:31 12/14/19 13:31 Laboratory results interpreted by me: 12/14/19 12/14/19 12/14/19 13:31 13:31 13:31 RBC 2.58 L Hgb 7.2 L Hct 20.9 L RDW 16.1 H Retic Count (auto) BUN 22 H Est GFR (MDRD) Non-Af 51 L Crossmatch See Detail 12/14/19 13:31 RBC Hgb Hct RDW Retic Count (auto) 3.21 H BUN Est GFR (MDRD) Non-Af Crossmatch - Consults Dr. Eduardo Time consulted: 14:10 Consulted provider: will come to ER Critical Care Note - Critical Care Note Total time excluding time spent on procedures (mins): 35 Discharge - Discharge Clinical Impression: Lower GI bleed Anemia Qualifiers: Anemia type: unspecified type Qualified Code(s): D64.9 - Anemia, unspecified Hypotension Qualifiers: Hypotension type: unspecified hypotension type Qualified Code(s): I95.9 - Hypotension, unspecified Condition: Good Disposition: ADMITTED INPATIENT Admitting Provider: Alesha (Hospitalist) Unit Admitted: Telemetry I personally performed the services described in the documentation, reviewed and edited the documentation which was dictated to the scribe in my presence, and it accurately records my words and actions.
--- NOTE | 2019-12-14 15:29 | ADVANCED CARE ---
- Diagnosis (1) Symptomatic anemia Diagnosis Current: Yes (2) Lower GI bleed Diagnosis Current: Yes Attendance: Patient, myself, patient's son and daughter via phone Resuscitation Status: Do Not Resuscitate - DNR/DNI Discussion: Discussed in detail with the patient would want to be resuscitated with CPR in the event of cardiac arrest for which patient declined vividly. Patient also declined intubation in the setting of cardiac arrest but also declined intubation he will without recurrence of cardiac arrest. Daughter did not understand the concept which I explained to her and ultimately patient made d ecision to be DNR/DNI in the presence of nursing staff as well. Also discussed patient's plan of care and potential for watchful waiting but that if things take a turn for the worse that endoscopy will be needed. She is agreeable to plan and is willing to consider endoscopy if it came to it. Time Spent: 17
[2019-12-14 15:58] LABS: FOLATE > 20.00 ng/mL (>2.76)
[2019-12-14] MEDS: INSULIN LISPRO 100 UNIT/ML 3 ML VIAL SUBCUT SCH ×2 (16:38→22:03)
[2019-12-15 06:00] LABS: HEMATOCRIT 25.5 % (36.0-47.0); HEMOGLOBIN 8.8 g/dL (12.0-15.5); MEAN CORPUSCULAR HGB CONC 34.7 g/dL (32.0-36.0); MEAN CORPUSCULAR VOLUME 81 fl (80-97); PLATELET COUNT 145 10^3/uL (150-450); RED BLOOD COUNT 3.16 10^6/uL (3.72-5.28); RED CELL DISTRIBUTION WIDTH 15.7 % (11.5-14.0); WHITE BLOOD COUNT 6.1 10^3/uL (4.0-10.5)
[2019-12-15 06:29] LABS: ANION GAP 5 (5-19); BLOOD UREA NITROGEN 20 mg/dL (7-20); CALCIUM 8.3 mg/dL (8.4-10.2); CARBON DIOXIDE 24 mmol/L (22-30); CHLORIDE 108 mmol/L (98-107); GLUCOSE 103 mg/dL (75-110); POTASSIUM 4.1 mmol/L (3.6-5.0)
--- NOTE | 2019-12-15 06:59 | PDOC CONSULTATION ---
Consultation Consult Date: 12/15/19 Provider Consulted: SURGICAL SURGICALIST MD Consult reason:: lower gi bleeding History of Present Illness Admission Date/PCP: 12/14/19 15:12 GARRET THOMAS History of Present Illness: JUAN CARLOS MONTANA is a 79 year old female seen in consultation at the request of the hospitalist service. This is a patient well-known to the surgery service. She recently had an episode of lower GI bleeding, thought to be related to diverticulitis. She is recently had upper and lower endoscopies which were normal. The patient reports melanotic stool, with some maroon-colored stool. Patient does report weakness and dizziness. She reports that her last stool did still have "some blood in it". Per her report, her symptoms appear to be improving. She denies chest pain, shortness of breath, hematemesis, nausea, vomiting, abdominal pain. She does report melena, hematochezia, fatigue, and weakness. Past Medical History Cardiac Medical History: Reports: Hyperlipidema, Hypertension Denies: Coronary Artery Disease, Myocardial Infarction Pulmonary Medical History: Denies: Asthma, Bronchitis, Chronic Obstructive Pulmonary Disease (COPD), Pneumonia Neurological Medical History: Denies: Seizures Endocrine Medical History: Reports: Diabetes Mellitus Type 2 GI Medical History: Reports: Gastroesophageal Reflux Disease Denies: Hepatitis, Hiatal Hernia Musculoskeltal Medical History: Denies: Arthritis Hematology: Reports: Anemia Denies: Sickle Cell Disease Past Surgical History Past Surgical History: Reports: Hysterectomy, Tubal Ligation, Other - Carpal tunnel release Denies: Amputation, Mastectomy, Pacemaker Social History Smoking Status: Never Smoker Electronic Cigarette use?: No Last Time Smoked: 30 year ago Frequency of Alcohol Use: Occasional Hx Recreational Drug Use: No Drugs: None Hx Prescription Drug Abuse: No - Advance Directive Resuscitation Status: Do Not Resuscitate - DNR/DNI Family History Family History: Reviewed & Not Pertinent Parental Family History Reviewed: Yes Children Family History Reviewed: Yes Sibling(s) Family History Reviewed.: Yes Medication/Allergy Home Medications: Carvedilol [Coreg 25 mg Tablet] 25 mg PO BID 03/21/19 Lisinopril [Prinivil 40 mg Tablet] 40 mg PO DAILY 03/21/19 Metformin HCl [Glucophage 500 mg Tablet] 500 mg PO DAILY 03/21/19 Nifedipine [Procardia XL 30 mg Tablet] 30 mg PO DAILY 03/21/19 Ascorbic Acid [Vitamin C 500 mg Tablet] 500 mg PO DAILY 12/14/19 Aspirin [Ecotrin 81 mg EC Tablet] 81 mg PO DAILY 12/14/19 Cyanocobalamin (Vitamin B-12) [B-12] 500 mcg PO Q2D 12/14/19 Allergies/Adverse Reactions: No Known Drug Allergies Allergy (Verified 10/04/19 10:21) Review of Systems Constitutional: PRESENT: fatigue, weakness. ABSENT: anorexia, chills Eyes: ABSENT: visual disturbances Ears: ABSENT: hearing changes Nose, Mouth, and Throat: ABSENT: sore throat Cardiovascular: ABSENT: chest pain Respiratory: ABSENT: cough Gastrointestinal: PRESENT: hematochezia, melena. ABSENT: abdominal pain, hematemesis, nausea, vomiting Genitourinary: ABSENT: dysuria Musculoskeletal: ABSENT: back pain Neurological: ABSENT: confusion, convulsions, dizziness Psychiatric: ABSENT: anxiety, depression Endocrine: ABSENT: cold intolerance, heat intolerance Hematologic/Lymphatic: ABSENT: easy bleeding, easy bruising Physical Exam Vital Signs: Temp Pulse Resp BP Pulse Ox 98.9 F 78 17 112/71 99 12/15/19 01:45 12/15/19 02:00 12/15/19 01:45 12/15/19 01:45 12/15/19 01:45 Intake & Output 12/13/19 12/14/19 12/15/19 06:59 06:59 06:59 Intake Total 1720 Balance 1720 Weight 71.5 kg General appearance: PRESENT: no acute distress, cooperative Head exam: PRESENT: atraumatic, normocephalic Eye exam: PRESENT: EOMI. ABSENT: scleral icterus Mouth exam: PRESENT: neck supple Neck exam: ABSENT: meningismus, tenderness, tracheal deviation, tracheostomy Respiratory exam: PRESENT: unlabored. ABSENT: chest wall tenderness, tachypnea, wheezes Cardiovascular exam: ABSENT: tachycardia Vascular exam: PRESENT: normal capillary refill GI/Abdominal exam: PRESENT: soft. ABSENT: distended, firm, rebound, tenderness Rectal exam: PRESENT: deferred Extremities exam: ABSENT: clubbing Musculoskeletal exam: ABSENT: deformity Neurological exam: PRESENT: alert, awake Psychiatric exam: ABSENT: agitated, anxious, depressed Focused psych exam: ABSENT: delusional Skin exam: ABSENT: cyanosis, erythema, jaundice Results Laboratory Results: 12/15/19 05:18 12/15/19 05:18 12/14/19 12/14/19 12/14/19 13:31 13:31 13:31 WBC 4.5 RBC 2.58 L Hgb 7.2 L Hct 20.9 L MCV 81 MCH 27.8 MCHC 34.3 RDW 16.1 H Plt Count 166 Seg Neutrophils % 52.9 Retic Count (auto) Sodium 137.3 Potassium 4.6 Chloride 106 Carbon Dioxide 26 Anion Gap 5 BUN 22 H Creatinine 1.05 Est GFR ( Amer) > 60 Glucose 109 Calcium 8.7 Iron TIBC % Saturation Ferritin Total Bilirubin 0.2 AST 24 Alkaline Phosphatase 66 Total Protein 6.4 Albumin 3.6 Lipase 153.7 Vitamin B12 Folate Urine Color Urine Appearance Urine pH Ur Specific Concrete Urine Protein Urine Glucose (UA) Urine Ketones Urine Blood Urine Nitrite Ur Leukocyte Esterase Urine WBC (Auto) Urine RBC (Auto) Blood Type O POSITIVE Antibody Screen POSITIVE 12/14/19 12/14/19 12/14/19 13:31 13:31 14:45 WBC RBC Hgb Hct MCV MCH MCHC RDW Plt Count Seg Neutrophils % Retic Count (auto) 3.21 H Sodium Potassium Chloride Carbon Dioxide Anion Gap BUN Creatinine Est GFR ( Amer) Glucose Calcium Iron 39.8 TIBC 342 % Saturation 12 Ferritin 16.80 Total Bilirubin AST Alkaline Phosphatase Total Protein Albumin Lipase Vitamin B12 770.0 Folate > 20.00 Urine Color YELLOW Urine Appearance CLEAR Urine pH 6.0 Ur Specific Concrete 1.009 Urine Protein NEGATIVE Urine Glucose (UA) NEGATIVE Urine Ketones NEGATIVE Urine Blood NEGATIVE Urine Nitrite NEGATIVE Ur Leukocyte Esterase NEGATIVE Urine WBC (Auto) 0 Urine RBC (Auto) 0 Blood Type Antibody Screen 12/15/19 12/15/19 05:18 05:18 WBC 6.1 RBC 3.16 L Hgb 8.8 L Hct 25.5 L MCV 81 MCH 28.0 MCHC 34.7 RDW 15.7 H Plt Count 145 L Seg Neutrophils % Retic Count (auto) Sodium 137.4 Potassium 4.1 Chloride 108 H Carbon Dioxide 24 Anion Gap 5 BUN 20 Creatinine 0.86 Est GFR ( Amer) > 60 Glucose 103 Calcium 8.3 L Iron TIBC % Saturation Ferritin Total Bilirubin AST Alkaline Phosphatase Total Protein Albumin Lipase Vitamin B12 Folate Urine Color Urine Appearance Urine pH Ur Specific Concrete Urine Protein Urine Glucose (UA) Urine Ketones Urine Blood Urine Nitrite Ur Leukocyte Esterase Urine WBC (Auto) Urine RBC (Auto) Blood Type Antibody Screen Assessment & Plan - Diagnosis (1) GI bleed Qualifiers: GI bleed type/associated pathology: unspecified gastrointestinal hemorrhage type Qualified Code(s): K92.2 - Gastrointestinal hemorrhage, unspecified Is this a current diagnosis for this admission?: Yes - Plan Summary Plan Summary: This is a 79-year-old female with GI bleeding, very likely from a lower GI source. The patient recently had upper and lower endoscopies, which were normal. At this time, there is no benefit to endoscopic evaluation. I recommend monitoring her hemoglobin levels. If the patient has a greater than 6 unit transfusion requirement, a study to localize the area of bleeding may be necessary (CT angiogram or mesenteric arteriogram). Continue with supportive care. No indication for endoscopy at this time. No indication for surgery at this time. Surgery will follow with you, in case her conditions worsens.
[2019-12-15] MEDS ORDERED: ASCORBIC ACID 500 MG TABLET PO SCH (10:00)
[2019-12-15] MEDS ORDERED: CYANOCOBALAMIN (VITAMIN B-12) 1,000 MCG TABLET PO SCH (10:00)
[2019-12-15] MEDS: INSULIN LISPRO 100 UNIT/ML 3 ML VIAL SUBCUT SCH ×3 (10:32→17:56)
[2019-12-15 16:05] VITALS: BP 107/76
[2019-12-15 16:58] LABS: HEMATOCRIT 23.9 % (36.0-47.0); HEMOGLOBIN 8.3 g/dL (12.0-15.5); MEAN CORPUSCULAR HGB CONC 34.8 g/dL (32.0-36.0); MEAN CORPUSCULAR VOLUME 81 fl (80-97); PLATELET COUNT 152 10^3/uL (150-450); RED BLOOD COUNT 2.97 10^6/uL (3.72-5.28); RED CELL DISTRIBUTION WIDTH 16.3 % (11.5-14.0); WHITE BLOOD COUNT 4.7 10^3/uL (4.0-10.5)
[2019-12-15] MEDS ORDERED: NORMAL SALINE 1000 ML 1,000 ML IV ONE (17:42)
--- NOTE | 2019-12-15 17:54 | PDOC PROGRESS REPORT ---
Subjective Progress Note for:: 12/15/19 Subjective:: Explained to patient that she will need to stay because her hemoglobin has dropped even further this evening but patient is insistent on going home. She is also orthostatic positive this evening and blood pressures are still soft despite not receiving any BP meds yesterday night or this morning. I have explained to patient the importance of her not leaving AMA but she insists on leaving and states she will drink fluids at home and not take her blood pressure medications tonight. I have explained the risks and encouraged patient that if she does decide to leave AMA, to not take her BP meds onto her systolic blood pressure goes above 120 and to follow-up with her primary care provider within a week for repeat CBC and reevaluation. Reason For Visit: LOWER GI BLEED,SYMPTOMATIC ANEMIA Physical Exam Vital Signs: Temp Pulse Resp BP Pulse Ox 98.9 F 75 18 107/76 99 12/15/19 15:00 12/15/19 15:00 12/15/19 15:00 12/15/19 15:00 12/15/19 15:00 Intake & Output 12/14/19 12/15/19 12/16/19 06:59 06:59 06:59 Intake Total 1960 425 Balance 1960 425 Weight 71.5 kg General appearance: PRESENT: no acute distress, cooperative Neck exam: ABSENT: JVD Respiratory exam: PRESENT: symmetrical, unlabored. ABSENT: accessory muscle use, retraction, tachypnea Cardiovascular exam: ABSENT: tachycardia GI/Abdominal exam: PRESENT: soft. ABSENT: rebound, rigid, tenderness Neurological exam: PRESENT: alert, awake, oriented to person, oriented to place, oriented to time Psychiatric exam: ABSENT: agitated, anxious Focused psych exam: ABSENT: pressured speech Skin exam: ABSENT: jaundice Results Laboratory Results: 12/15/19 16:45 12/15/19 05:18 12/14/19 12/15/19 12/15/19 13:31 05:18 05:18 WBC 6.1 RBC 3.16 L Hgb 8.8 L Hct 25.5 L MCV 81 MCH 28.0 MCHC 34.7 RDW 15.7 H Plt Count 145 L Sodium 137.4 Potassium 4.1 Chloride 108 H Carbon Dioxide 24 Anion Gap 5 BUN 20 Creatinine 0.86 Est GFR ( Amer) > 60 Glucose 103 Calcium 8.3 L Blood Type O POSITIVE Antibody Screen POSITIVE 12/15/19 16:45 WBC 4.7 RBC 2.97 L Hgb 8.3 L Hct 23.9 L MCV 81 MCH 28.0 MCHC 34.8 RDW 16.3 H Plt Count 152 Sodium Potassium Chloride Carbon Dioxide Anion Gap BUN Creatinine Est GFR ( Amer) Glucose Calcium Blood Type Antibody Screen Assessment and Plan - Diagnosis (1) Symptomatic anemia Is this a current diagnosis for this admission?: Yes Plan: Possible that palpitation and lightheadedness today may have been secondary to patient's normocytic anemia. Hemoglobin of 7.2 improved to 8.8 after 2 units PRBC but dropped further today to 8.3 this evening (2) Lower GI bleed Is this a current diagnosis for this admission?: Yes Plan: Last EGD with colonoscopy on 03/22/2019 showing multiple sigmoid and descending colonic diverticula, no active bleeding hemorrhoids, hiatal hernia. Suspecting that patient may have experienced a diverticular bleed which may be currently resolving as the blood is darkening. Conservative management may suffice if H&H holds steady and bleeding resolves but surgery involved as well just in case things take a turn. Unfortunately, patient's BPs are still soft and she is orthostatic positive this afternoon with hemoglobin trending back down necessitating further stay for monitoring and possible intervention if needed. However patient has opted to leave AMA. (3) HTN (hypertension) Qualifiers: Hypertension type: unspecified Qualified Code(s): I10 - Essential (primary) hypertension Is this a current diagnosis for this admission?: Yes Plan: Blood pressures are still within normal range despite not getting any BP meds yesterday night or today. BP meds on hold. Normal saline was ordered due to orthostatic positive blood patient is leaving AMA this evening before receiving fluids. (4) Type 2 diabetes mellitus Is this a current diagnosis for this admission?: Yes Plan: Metformin held in case CT angiogram is needed. Sliding scale insulin and Accu- Cheks - Plan Summary Summary: Discussed plan with patient's family this morning. - Time Time Spent with patient: 15-24 minutes
--- NOTE | 2019-12-16 07:28 | Left Against Medical Advice ---
Against Medical Advice Admission Date/Time: 12/14/19 15:12 Primary Care Provider: GARRET THOMAS Date of Patient Emigration: 12/15/19 - Diagnosis: (1) Symptomatic anemia Is this a current diagnosis for this admission?: Yes (2) Lower GI bleed Is this a current diagnosis for this admission?: Yes (3) HTN (hypertension) Is this a current diagnosis for this admission?: Yes (4) Type 2 diabetes mellitus Is this a current diagnosis for this admission?: Yes - Summary: Summary: Please see Admission and Progress Notes as well. JUAN CARLOS MONTANA is a 79 F, who LEFT AGAINST MEDICAL ADVICE. The Patient was admitted on 12/14/19 15:12.
== END 2019-12-15 18:03 | disposition home or self-care (01) ==
LOC: ER 13:04 → EH 15:12 → 4S 15:57
PROVIDERS: ADMIT Internal Medicine; ATTEND Internal Medicine
DX: D64.9 Anemia, unspecified (principal); K92.2 Gastrointestinal hemorrhage, unspecified; I10 Essential (primary) hypertension; E11.9 Type 2 diabetes mellitus without complications; E66.9 Obesity, unspecified; M79.602 Pain in left arm; R11.0 Nausea; R10.12 Left upper quadrant pain; Z87.891 Personal history of nicotine dependence; Z66 Do not resuscitate; Z79.82 Long term (current) use of aspirin; Z79.899 Other long term (current) drug therapy; Z79.84 Long term (current) use of oral hypoglycemic drugs; Z87.19 Personal history of other diseases of the digestive system
CPT/HCPCS: 99285; 86900; 86901; 36415 ×2; 36430; 86870; 86850; 86922; 82962 ×2; 82607; 82728; 82746; 83540; 83550; 83690; 85025; 85027; 85610; 85730; 85045; 80048; 80053; 81001; 86920; P9016; A9270 ×2